=== PATIENT | male | born 1960 | race African-American/Black ===

== ENCOUNTER 2016-09-15 14:47 | Emergency (ER) | payer OTHER ==
[2016-09-15] MEDS ORDERED: IBUPROFEN 800 MG TABLET PO ONE (15:07)
--- NOTE | 2016-09-15 15:07 | ER Document Report ---
ED Medical Screen (RME) - General Stated Complaint: STOMACH PAIN Mode of Arrival: Ambulatory Information source: Patient Notes: Patient presents to the emergency department with left lower quadrant abdominal pain since yesterday. He reports has history of diverticulitis. Patient is a diabetic. Reports he is afraid to eat. I have greeted and performed a rapid initial assessment of this patient. A comprehensive ED assessment and evaluation of the patient, analysis of test results and completion of the medical decision making process will be conducted by additional ED providers. - Related Data Allergies/Adverse Reactions: No Known Allergies Allergy (Unverified 03/27/14 01:11) Past Medical History - Past Medical History Cardiac Medical History: Reports: Hx Hypercholesterolemia, Hx Hypertension Endocrine Medical History: Reports: Hx Diabetes Mellitus Type 2 Past Surgical History: Reports: Hx Cardiac Catheterization - Several years ago, was negative by patient history.
[2016-09-15 15:24] LABS: ABSOLUTE BASOPHILS # (AUTO) 0.1 10^3/uL (0.0-0.2); ABSOLUTE LYMPHOCYTES (AUTO) 1.3 10^3/uL (0.5-4.7); ABSOLUTE MONOCYTES (AUTO) 0.9 10^3/uL (0.1-1.4); BASOPHILS % (AUTO) 0.8 % (0-2); LYMPHOCYTES % (AUTO) 11.5 % (13-45); MEAN CORPUSCULAR HEMOGLOBIN 31.1 pg (27.0-33.4); MEAN CORPUSCULAR HGB CONC 34.8 g/dL (32.0-36.0); MEAN CORPUSCULAR VOLUME 89 fl (80-97); MONOCYTES % (AUTO) 8.2 % (3-13); RED BLOOD COUNT 4.81 10^6/uL (4.35-5.55); RED CELL DISTRIBUTION WIDTH 13.2 % (11.5-14.0); SEGMENTED NEUTROPHILS % (AUTO) 79.5 % (42-78); WHITE BLOOD COUNT 11.3 10^3/uL (4.0-10.5)
[2016-09-15 15:32] LABS: APPEARANCE,URINE CLEAR; BILIRUBIN,URINE NEGATIVE (NEGATIVE); GLUCOSE, URINE NEGATIVE (NEGATIVE); KETONES,URINE NEGATIVE (NEGATIVE); LEUKOCYTE ESTERASE,URINE MODERATE (NEGATIVE); NITRITE,URINE NEGATIVE (NEGATIVE); PROTEIN,URINE NEGATIVE (NEGATIVE); URINE SPECIFIC GRAVITY 1.003; UROBILINOGEN,URINE NEGATIVE mg/dL (<2.0)
[2016-09-15 15:44] LABS: ALANINE AMINOTRANSFERASE 32 U/L (21-72); ALBUMIN 4.2 g/dL (3.5-5.0); ALKALINE PHOSPHATASE 63 U/L (38-126); ANION GAP 13 (5-19); ASPARTATE AMINO TRANSFERASE 28 U/L (17-59); BILIRUBIN,DIRECT 0.2 mg/dL (0.0-0.4); BLOOD UREA NITROGEN 13 mg/dL (7-20); CALCIUM 9.5 mg/dL (8.4-10.2); CARBON DIOXIDE 27 mmol/L (22-30); CHLORIDE 99 mmol/L (98-107); CREATININE RESULT 0.97 mg/dL (0.52-1.25); GLUCOSE 180 mg/dL (75-110); LIPASE 127.3 U/L (23-300); POTASSIUM 4.1 mmol/L (3.6-5.0); TOTAL PROTEIN 7.2 g/dL (6.3-8.2)
--- NOTE | 2016-09-15 16:24 | ER Document Report ---
ED GI/ - General Chief Complaint: Abdominal Pain >50 Stated Complaint: STOMACH PAIN Mode of Arrival: Ambulatory Information source: Patient Notes: Patient presents complaining of left lower quadrant abdominal pain that started yesterday. Patient denies any fever, nausea, vomiting or diarrhea. Patient denies any urinary symptoms. Patient does have a history of diverticulitis in the past and suspect the same today. Patient denies any rectal bleeding. TRAVEL OUTSIDE OF THE [place] IN LAST 30 DAYS: No - HPI Patient complains to provider of: Abdominal pain. No: Diarrhea Onset: Yesterday Timing/Duration: Worse Quality of pain: Sharp Pain Level: 3 Location: LLQ Associated symptoms: Loss of appetite. 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 Review of Systems - Review of Systems Constitutional: No symptoms reported. denies: Fever, Recent illness EENT: No symptoms reported Cardiovascular: No symptoms reported. denies: Chest pain Respiratory: No symptoms reported. denies: Cough, Short of breath Gastrointestinal: Abdominal pain, Poor appetite. denies: Diarrhea, Nausea, Vomiting, Constipation Genitourinary: No symptoms reported. denies: Dysuria Male Genitourinary: No symptoms reported Musculoskeletal: No symptoms reported. denies: Back pain Skin: No symptoms reported Hematologic/Lymphatic: No symptoms reported Neurological/Psychological: No symptoms reported Physical Exam - Vital signs Vitals: Temp Pulse Resp BP Pulse Ox 98.8 F 119 H 21 H 133/85 H 97 09/15/16 15:07 09/15/16 15:07 09/15/16 15:07 09/15/16 15:07 09/15/16 15:07 - General General appearance: Appears well, Alert In distress: None Notes: PHYSICAL EXAMINATION: GENERAL: Well-appearing and in no acute distress. HEAD: Atraumatic, normocephalic. EYES: sclera anicteric, conjunctiva are normal. ENT: nares patent. Moist mucous membranes. NECK: Normal range of motion, supple without lymphadenopathy LUNGS: CTAB and equal. No wheezes rales or rhonchi. HEART: Regular rate and rhythm without murmurs ABDOMEN: Soft, left lower quadrant tenderness with guarding, normal bowel sounds. EXTREMITIES: Normal range of motion, no pitting edema. No cyanosis. BACK: No midline tenderness, no step-off or deformity. No CVA tenderness NEUROLOGICAL: Cranial nerves grossly intact. Normal speech. PSYCH: Normal mood, normal affect. SKIN: Warm, Dry, normal turgor, no rashes or lesions noted Course - Re-evaluation Re-evalutation: 09/15/16 16:[address] Bolivar who recommends CT imaging 09/15/16 18:05 Abdomen soft, patient nontoxic in appearance. Consulted with Dr. Bolivar regarding CT report, agrees with discharge plan of care, recommends outpatient follow-up with his primary care provider for recheck. Discussed plan of care with patient. Patient verbalized understanding and agrees with discharge plan of care. Discussed worsening signs or symptoms that patient should return immediately for. Patient's at bedside - Vital Signs Vital signs: Temp Pulse Resp BP Pulse Ox 97.9 F 82 16 117/73 98 09/15/16 17:56 09/15/16 17:56 09/15/16 17:56 09/15/16 17:56 09/15/16 17:56 - Laboratory Result Diagrams: 09/15/16 15:10 09/15/16 15:10 Laboratory results interpreted by me: 09/15/16 09/15/16 09/15/16 15:10 15:10 15:10 WBC 11.3 H Seg Neutrophils % 79.5 H Lymphocytes % 11.5 L Absolute Neutrophils 9.0 H Glucose 180 H Ur Leukocyte Esterase MODERATE H 09/15/16 18:07 Labs- Entire Visit 09/15/16 09/15/16 09/15/16 15:10 15:10 15:10 WBC 11.3 H RBC 4.81 Hgb 15.0 Hct 43.0 MCV 89 MCH 31.1 MCHC 34.8 RDW 13.2 Plt Count 157 Seg Neutrophils % 79.5 H Lymphocytes % 11.5 L Monocytes % 8.2 Eosinophils % 0.0 Basophils % 0.8 Absolute Neutrophils 9.0 H Absolute Lymphocytes 1.3 Absolute Monocytes 0.9 Absolute Eosinophils 0.0 Absolute Basophils 0.1 Sodium 139.0 Potassium 4.1 Chloride 99 Carbon Dioxide 27 Anion Gap 13 BUN 13 Creatinine 0.97 Est GFR ( Amer) > 60 Est GFR (Non-Af Amer) > 60 Glucose 180 H Calcium 9.5 Total Bilirubin 1.0 Direct Bilirubin 0.2 Indirect Bilirubin Not Reportable Neonat Total Bilirubin Not Reportable AST 28 ALT 32 Alkaline Phosphatase 63 Total Protein 7.2 Albumin 4.2 Lipase 127.3 Urine Color STRAW Urine Appearance CLEAR Urine pH 7.0 Ur Specific Moran 1.003 Urine Protein NEGATIVE Urine Glucose (UA) NEGATIVE Urine Ketones NEGATIVE Urine Blood NEGATIVE Urine Nitrite NEGATIVE Urine Bilirubin NEGATIVE Urine Urobilinogen NEGATIVE Ur Leukocyte Esterase MODERATE H Urine WBC (Auto) 3 Urine RBC (Auto) 1 Urine Mucus (Auto) RARE Urine Ascorbic Acid NEGATIVE 09/15/16 18:31 - Diagnostic Test Radiology reviewed: Reports reviewed Discharge - Discharge Clinical Impression: Abdominal pain Qualifiers: Abdominal location: left lower quadrant Qualified Code(s): R10.32 - Left lower quadrant pain Diverticulitis Qualifiers: Diverticulitis site: unspecified part of intestinal tract Diverticulitis bleeding: without bleeding Diverticulitis complication: without perforation or abscess Qualified Code(s): K57.92 - Diverticulitis of intestine, part unspecified, without perforation or abscess without bleeding Condition: Stable Disposition: HOME, SELF-CARE Instructions: Abdominal Pain ([facility]), Antinausea Medication ([facility]), Diverticulitis ([facility]), Ciprofloxacin ([facility]), Oral Narcotic Medication ([facility]), Metronidazole ([facility]) Additional Instructions: Return immediately for any new or worsening symptoms Followup with your primary care provider, [facility], call tomorrow to make a followup appointment Prescriptions: Ciprofloxacin HCl [Cipro 500 mg Tablet] 500 mg PO BID #20 tablet Metronidazole [Flagyl 500 mg Tablet] 500 mg PO TID #30 tablet Oxycodone HCl/Acetaminophen [Percocet 5-325 mg Tablet] 1 tab PO ASDIR PRN #15 tablet PRN Reason: Promethazine HCl [Phenergan 25 mg Tablet] 25 mg PO Q6H PRN #15 tablet PRN Reason: Forms: Return to Work
[2016-09-15 17:57] VITALS: BP 117/73
[2016-09-15] MEDS ORDERED: METRONIDAZOLE 500 MG TABLET PO ONE (18:04)
[2016-09-15] MEDS ORDERED: CIPROFLOXACIN HCL 500 MG TABLET PO ONE (18:04)
[2016-09-15] MEDS ORDERED: PROMETHAZINE HCL 25 MG TABLET PO ONE (18:04)
== END 2016-09-15 18:56 | disposition home or self-care (01) ==
LOC: ER 14:47
DX: K57.32 Diverticulitis of large intestine without perforation or abscess without bleeding (principal); R10.32 Left lower quadrant pain; R63.0 Anorexia; E11.9 Type 2 diabetes mellitus without complications; I10 Essential (primary) hypertension
CPT/HCPCS: 36415; 74177; 80053; 81001; 83690; 85025; 99284